=== PATIENT | male | born 1985 | race African-American/Black ===

== ENCOUNTER 2018-06-01 15:05 | Emergency (ER) | payer MEDICAID, OTHER ==
[~2018-06-01] VITALS: Ht 185.4 cm; Wt 63.0 kg
[~2018-06-01 15:05] MED LIST: [UNRECOGNIZED DRUG - REMARK]
[2018-06-01 17:00] VITALS: BP 117/68
== END 2018-06-01 17:02 | disposition home or self-care (01) ==
LOC: ER 15:05
DX: S00.512A Abrasion of oral cavity, initial encounter (principal); R56.9 Unspecified convulsions; X58.XXXA Exposure to other specified factors, initial encounter; Y93.89 Activity, other specified; Y92.89 Other specified places as the place of occurrence of the external cause; Y99.8 Other external cause status
CPT/HCPCS: 36415; 80185; 99283

== ENCOUNTER 2018-09-07 15:15 | Emergency (ER) | payer MEDICAID ==
[~2018-09-07] VITALS: Ht 188 cm; Wt 63.0 kg
[2018-09-07 21:27] VITALS: BP 118/71
== END 2018-09-07 21:31 | disposition home or self-care (01) ==
LOC: ER 15:15
DX: R51 Headache (principal); F17.200 Nicotine dependence, unspecified, uncomplicated
CPT/HCPCS: 99283

== ENCOUNTER 2020-08-24 18:46 | Emergency (ER) | payer MEDICAID ==
[~2020-08-24] VITALS: Ht 188 cm; Wt 63.0 kg
[2020-08-24 18:47] VITALS: BP 131/75
[2020-08-24] MEDS ORDERED: PHENYTOIN SODIUM EXTENDED 100MG CAPSULE PO ONE (19:30)
[2020-08-24 20:05] LABS: BASOPHILS % 0.3 % (0.0-2.0); EOSINOPHILS % 1.3 % (0.0-5.0); HEMATOCRIT. 41.4 % (42.0-52.0); HEMOGLOBIN. 14.3 g/dL (14.0-18.0); LYMPHOCYTES % 16.8 % (20.0-50.0); MEAN CORPUSCULAR HEMOGLOBIN 32.3 pg (28.0-32.0); MEAN CORPUSCULAR VOLUME 93.6 fL (80.0-94.0); MEAN PLATELET VOLUME 8.5 fl (7.4-10.4); MONOCYTES % 7.8 % (2.0-8.0); NEUTROPHILS % 73.8 % (40.0-76.0); PLATELET 221 x1000/uL (130-400); RED BLOOD CELL COUNT 4.42 mill/uL (4.7-6.1); RED CELL DISTRIBUTION WIDTH 13.4 % (11.6-14.6)
[2020-08-24 20:22] LABS: CHLORIDE 107 mEq/L (98-107)
[2020-08-24 20:26] LABS: ETHANOL BLOOD < 10 mg/dL
== END 2020-08-24 21:04 | disposition home or self-care (01) ==
LOC: ER 18:46
DX: G40.909 Epilepsy, unspecified, not intractable, without status epilepticus (principal); Z91.14 Patient's other noncompliance with medication regimen
CPT/HCPCS: 36415; 80053; 80320; 85025; 93005; 99284; G0480

== ENCOUNTER 2020-09-02 12:53 | Emergency (ER) | payer MEDICAID ==
[~2020-09-02] VITALS: Ht 177.8 cm; Wt 75.0 kg
[2020-09-02 13:54] LABS: BASOPHILS % 0.8 % (0.0-2.0); EOSINOPHILS % 4.6 % (0.0-5.0); HEMATOCRIT. 43.5 % (42.0-52.0); HEMOGLOBIN. 14.7 g/dL (14.0-18.0); LYMPHOCYTES % 38.1 % (20.0-50.0); MEAN CORPUSCULAR HEMOGLOBIN 31.6 pg (28.0-32.0); MEAN CORPUSCULAR VOLUME 93.7 fL (80.0-94.0); MEAN PLATELET VOLUME 8.8 fl (7.4-10.4); MONOCYTES % 9.3 % (2.0-8.0); NEUTROPHILS % 47.2 % (40.0-76.0); PLATELET 236 x1000/uL (130-400); RED BLOOD CELL COUNT 4.64 mill/uL (4.7-6.1); RED CELL DISTRIBUTION WIDTH 13.4 % (11.6-14.6)
[2020-09-02 13:58] LABS: CHLORIDE 108 mEq/L (98-107)
[2020-09-02] MEDS ORDERED: PHENYTOIN 100 MG/4 ML UDC PO ONE (14:15)
[2020-09-02] MEDS ORDERED: PHENYTOIN SODIUM EXTENDED 100MG CAPSULE PO NR (14:30)
[2020-09-02 15:30] VITALS: BP 122/70
== END 2020-09-02 15:32 | disposition home or self-care (01) ==
LOC: ER 12:53
DX: G40.909 Epilepsy, unspecified, not intractable, without status epilepticus (principal); F17.200 Nicotine dependence, unspecified, uncomplicated
CPT/HCPCS: 36415; 80053; 80185; 85025; 99284

== ENCOUNTER 2020-10-12 11:04 | Emergency (ER) | payer MEDICAID ==
[~2020-10-12] VITALS: Ht 188 cm; Wt 73.0 kg
[2020-10-12 11:49] LABS: CHLORIDE 108 mEq/L (98-107)
[2020-10-12 11:53] LABS: ETHANOL BLOOD < 10 mg/dL
[2020-10-12 12:04] LABS: CLARITY URINE CLEAR (CLEAR); COLOR URINE YELLOW (YELLOW); KETONES URINE TRACE (NEGATIVE); LEUKOCYTE ESTERASE URINE TRACE (NEGATIVE); NITRITE URINE NEGATIVE (NEGATIVE); OCCULT BLOOD URINE NEGATIVE (NEGATIVE); PH URINE 6.5 (4.5-8.0); PROTEIN URINE 1+ (NEGATIVE); SPECIFIC GRAVITY URINE 1.026 (1.005-1.030)
[2020-10-12] MEDS ORDERED: PHENYTOIN SODIUM 1,000 MG in SODIUM CHLORIDE 0.9% 100 ML IV ONE (12:30)
[2020-10-12 12:32] LABS: BASOPHILS % 0.8 % (0.0-2.0); EOSINOPHILS % 1.7 % (0.0-5.0); HEMATOCRIT. 38.8 % (42.0-52.0); HEMOGLOBIN. 13.7 g/dL (14.0-18.0); LYMPHOCYTES % 13.9 % (20.0-50.0); MEAN CORPUSCULAR HEMOGLOBIN 32.2 pg (28.0-32.0); MEAN CORPUSCULAR VOLUME 91.2 fL (80.0-94.0); MEAN PLATELET VOLUME 7.7 fl (7.4-10.4); MONOCYTES % 6.8 % (2.0-8.0); NEUTROPHILS % 76.8 % (40.0-76.0); PLATELET 296 x1000/uL (130-400); RED BLOOD CELL COUNT 4.25 mill/uL (4.7-6.1)
[2020-10-12 13:13] LABS: CANNABINOID URINE SCREEN PRESUMTIVE POSITIVE (NEGATIVE); METHADONE URINE SCREEN NEGATIVE (NEGATIVE); OPIATES URINE SCREEN NEGATIVE (NEGATIVE); PHENCYCLIDINE URINE SCREEN NEGATIVE (NEGATIVE)
[2020-10-12 13:14] LABS: *AMPHETAMINES SCREEN URINE NEGATIVE (NEGATIVE); *BARBITURATES SCREEN URINE NEGATIVE (NEGATIVE); *BENZODIAZEPINES SCREEN URINE NEGATIVE (NEGATIVE); *COCAINE SCREEN URINE NEGATIVE (NEGATIVE)
[2020-10-12 13:54] VITALS: BP 117/68
== END 2020-10-12 14:52 | disposition home or self-care (01) ==
LOC: ER 11:04
DX: G40.909 Epilepsy, unspecified, not intractable, without status epilepticus (principal)
CPT/HCPCS: 36415; 80053; 80185; 80305; 80320; 81003; 82962; 85025; 87086; 96365; 99284; J1165; J7050; G0480

== ENCOUNTER 2021-04-17 17:55 | Emergency (ER) | payer MEDICAID ==
[~2021-04-17] VITALS: Ht 182.9 cm; Wt 75.0 kg
[2021-04-17 18:03] VITALS: BP 128/73
== END 2021-04-17 18:51 | disposition home or self-care (01) ==
LOC: ER 17:55
DX: G40.909 Epilepsy, unspecified, not intractable, without status epilepticus (principal)
CPT/HCPCS: 99283

== ENCOUNTER 2022-12-13 18:48 | Emergency (ER) | payer MEDICAID ==
[~2022-12-13] VITALS: Ht 188 cm; Wt 60.0 kg
[2022-12-13 19:14] VITALS: BP 108/70; O2SAT 100
[2022-12-13] MEDS ORDERED: PHENYTOIN SODIUM EXTENDED 100MG CAPSULE PO ONE (19:45)
[2022-12-13] MEDS: PHENYTOIN SODIUM EXTENDED 100MG CAPSULE PO NR ×2 (22:24→22:26)
[2022-12-13 22:27] VITALS: PULSE 67; RESP 20; TEMP 98
== END 2022-12-13 22:22 | disposition home or self-care (01) ==
LOC: ER 18:48
DX: R56.9 Unspecified convulsions (principal)
CPT/HCPCS: 99281

== ENCOUNTER 2022-12-24 13:01 | Emergency (ER) | payer MEDICAID ==
[~2022-12-24] VITALS: Ht 185.4 cm; Wt 83.0 kg
[2022-12-24 13:03] VITALS: O2SAT 98
[2022-12-24 18:46] VITALS: BP 104/64; PULSE 62; RESP 16; TEMP 97.9
== END 2022-12-24 18:56 | disposition home or self-care (01) ==
LOC: ER 13:09
DX: R56.9 Unspecified convulsions (principal)
CPT/HCPCS: 82962; 70486; 99284; Z7610 ×2

== ENCOUNTER 2025-04-01 12:29 | Emergency (ER) | payer MEDICAID ==
[~2025-04-01] VITALS: Ht 182.9 cm; Wt 78.0 kg
[2025-04-01 12:31] VITALS: O2SAT 98
[2025-04-01] MEDS ORDERED: PHENYTOIN SODIUM 100MG/2ML VIAL IV ONE (13:00)
[2025-04-01] MEDS: PHENYTOIN SODIUM 500MG in SODIUM CHLORIDE 0.9% 50ML IV NR (13:46)
[2025-04-01] MEDS: PHENYTOIN SODIUM EXTENDED 100MG CAPSULE PO NR (15:02)
[2025-04-01 16:12] VITALS: BP 108/65; PULSE 59; RESP 12; TEMP 36.9; O2SAT 99
== END 2025-04-01 16:10 | disposition home or self-care (01) ==
LOC: ER 12:29
DX: G40.909 Epilepsy, unspecified, not intractable, without status epilepticus (principal)
CPT/HCPCS: 99284; 96365; 80185; 36415; 93005; J1165